=== PATIENT | female | born 2000 | race African-American/Black ===

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

== ENCOUNTER 2021-08-18 18:19 | Emergency (ER) | payer MEDICAID ==
[~2021-08-18] VITALS: Ht 167.6 cm; Wt 63.0 kg
[2021-08-18 19:30] LABS: BASOPHILS % 0.6 % (0.0-2.0); EOSINOPHILS % 0.9 % (0.0-5.0); HEMATOCRIT. 37.7 % (36.0-48.0); HEMOGLOBIN. 12.2 g/dL (12.0-16.0); LYMPHOCYTES % 34.4 % (20.0-50.0); MEAN CORPUSCULAR VOLUME 83.4 fL (81.0-99.0); MONOCYTES % 6.8 % (2.0-8.0); NEUTROPHILS % 57.3 % (40.0-76.0); PLATELET 250 x1000/uL (130-400); RED BLOOD CELL COUNT 4.52 mill/uL (4.2-5.4); RED CELL DISTRIBUTION WIDTH 15.2 % (11.6-14.6)
[2021-08-18 19:34] LABS: CHLORIDE 108 mEq/L (98-107)
[2021-08-18 19:35] LABS: HCG SCREEN NEGATIVE
[2021-08-18] MEDS ORDERED: IBUP-2028 MT (22:06)
[2021-08-18] MEDS ORDERED: KETOROLAC 60MG/2ML VIAL IM ONE (22:15)
[2021-08-18 22:33] VITALS: BP 125/76
== END 2021-08-18 22:36 | disposition home or self-care (01) ==
LOC: ER 20:45
DX: R07.9 Chest pain, unspecified (principal)
CPT/HCPCS: 36415; 71045; 80053; 84484; 84703; 85025; 93005; 96372; 99285; J1885

== ENCOUNTER 2022-01-03 20:26 | Emergency (ER) | payer MEDICAID ==
[~2022-01-03] VITALS: Ht 167.6 cm; Wt 58.8 kg
[~2022-01-03 20:26] MED LIST: IBUP-2028 MT
[2022-01-03 21:13] VITALS: BP 104/70
[2022-01-03] MEDS ORDERED: TETANUS, DIPHTHERIA, PERTUSSIS VAC/PF 0.5ML (>10YR OLD) IM ONE (22:45)
[2022-01-03] MEDS ORDERED: BACITRACIN ZINC OINT UDPKT TOP ONE (22:45)
[2022-01-03] MEDS ORDERED: IBUP-2028 MT (23:18)
[2022-01-03] MEDS ORDERED: CEPH500C2 MT (23:18)
== END 2022-01-04 10:40 | disposition home or self-care (01) ==
LOC: ER 20:26
DX: S61.411A Laceration without foreign body of right hand, initial encounter (principal); W26.8XXA Contact with other sharp object(s), not elsewhere classified, initial encounter; Y93.89 Activity, other specified; Y92.89 Other specified places as the place of occurrence of the external cause; Y99.8 Other external cause status
CPT/HCPCS: 73120; 99283